=== PATIENT | male | born 1955 | race Caucasian/White ===

== ENCOUNTER → 2020-12-02 | Outpatient (CLI) | payer SELFPAY ==
--- NOTE | 2020-12-02 10:16 | Diagnostic Imaging Report ---
INDICATION: Hyperlipidemia. TECHNIQUE: CT cardiac calcium score was performed with noncontrast images of the cardiac silhouette and calculation of calcium score. FINDINGS: Raw data images demonstrate no evidence of aortic aneurysm. The visualized portions of the mediastinum show no mass lesion. There is no pleural or pericardial fluid. There is a small hiatal hernia incidentally noted. The visualized portions of the lung adair show no infiltrates or nodules. The CT cardiac calcium score was 43.9 for calcifications in the distal LAD. The remaining coronary territories show no significant calcification. IMPRESSION: The cardiac calcium score was 43.9 for some calcifications in the distal LAD, compatible with a relatively mild overall plaque burden. No significant coronary calcification was seen in the remaining territories. There is a small incidental hiatal hernia with no other incidental findings in the visualized portions of the chest. Dictated by: Dictated on workstation # [id number]
== END ==
LOC: RAD FS 09:00
PROVIDERS: ATTEND Family Medicine
DX: K44.9 Diaphragmatic hernia without obstruction or gangrene (principal); E78.5 Hyperlipidemia, unspecified
CPT/HCPCS: 75571

== ENCOUNTER → 2023-01-05 | Outpatient (CLI) | payer MEDICARE, OTHER ==
[~2023-01-05] VITALS: Ht 205.7 cm; Wt 125.0 kg
[~2023-01-05] MED LIST: ALPR0.5T7 PO; LOSA1TAB26 PO; ROSU10TA28 PO
[2023-01-05 11:18] VITALS: BP 138/92
[2023-01-05 13:17] LABS: BASOPHILS % (AUTO) 1 % (0-10); EOSINOPHILS # (AUTO) 0.1 10^3/uL (0.0-0.3); EOSINOPHILS % (AUTO) 1 % (0-10); HEMATOCRIT 47 % (40-54); HEMOGLOBIN 15.7 g/dL (13.3-17.7); LYMPHOCYTES # (AUTO) 1.3 10^3/uL (1.0-4.0); LYMPHOCYTES % (AUTO) 19 % (12-44); MEAN CORPUSCULAR HEMOGLOBIN 31 pg (25-34); MEAN CORPUSCULAR HGB CONC 33 g/dL (32-36); MEAN CORPUSCULAR VOLUME 93 fL (80-99); MEAN PLATELET VOLUME 11.6 fL (9.0-12.2); MONOCYTES # (AUTO) 0.5 10^3/uL (0.0-1.0); MONOCYTES % (AUTO) 7 % (0-12); NEUTROPHILS # (AUTO) 4.8 10^3/uL (1.8-7.8); NEUTROPHILS % (AUTO) 72 % (42-75); PLATELET COUNT 199 10^3/uL (130-400); WHITE BLOOD COUNT 6.7 10^3/uL (4.3-11.0)
[2023-01-05 13:28] LABS: INR 0.9 (0.8-1.4); PROTHROMBIN TIME PATIENT 12.7 SEC (12.2-14.7)
[2023-01-05 13:50] LABS: ALBUMIN 4.4 GM/DL (3.2-4.5); BILIRUBIN,TOTAL 1.2 MG/DL (0.1-1.0); CALCIUM 9.3 MG/DL (8.5-10.1); CREATININE SERUM 0.92 MG/DL (0.60-1.30); POTASSIUM 3.8 MMOL/L (3.6-5.0); TOTAL PROTEIN 7.3 GM/DL (6.4-8.2)
--- NOTE | 2023-01-05 15:52 | Physical Therapy Pre-Op Eval ---
PT Pre-Surgical Assessment Type of Surgery Type of Surgery: Prior Level of Function Current Living Status: Spouse Locomotion (Upon Admit): Independent PLOF DME: None Subjective Home: Multilevel Current Living Status: Spouse Entry Into Home: Stairs With Railing Steps Into Home: 2 Steps Inside Home: 12 Steps Accessories: Railing Present Motor Control Motor Control: Motor Control WNL ROM ROM: WFL, except focal deficit Strength Strength: Gen Weak,No Focal Deficit Transfers Transfers (B, C, W/C) (FIM): 6 Gait Gait (FIM): 6 Gait Distance (FIM): 6 Gait Assistive Device: None Right Lower Extremity: Right Full Weight Bearing Left Lower Extremity: Left Full Weight Bearing Treatment Rendered Treatment: Patient instructed in assistive device, supported ambulation. Patient instructed in and given written program of ROM and strengthening exercises to be preformed post-op. Patient instructed in movement precautions where applicable. Patient demonstrates understandings of post-operative therapy protocol including gait pattern and exercise program. Pre-operative instruction completed; await physical therapy orders after surgery. Treatment Goal Met: Yes Assessment Goals Acheived: I Ambulation w/ FWW, Understands P-op Precaut, I Post-op Exercises Charges/GCodes Time In: 1100 Time Out: 1112 Total Billed Treatment Time: 12 Total Billed Treatment Visit, MALAIKA YOUNG PT Jan 05, 2023 15:52
[2023-01-06 09:06] LABS: BACTERIA,URINE NEGATIVE /HPF; BILIRUBIN,URINE NEGATIVE (NEGATIVE); CALCIUM OXALATE CRYSTALS,UR MODERATE /LPF; CLARITY,URINE CLEAR; COLOR,URINE YELLOW; GLUCOSE, URINE (UA) NEGATIVE (NEGATIVE); KETONES,URINE TRACE (NEGATIVE); LEUKOCYTE ESTERASE ,URINE NEGATIVE (NEGATIVE); NITRITE,URINE NEGATIVE (NEGATIVE); PROTEIN,URINE NEGATIVE (NEGATIVE)
== END ==
LOC: PREOP 10:57
PROVIDERS: ATTEND Orthopaedic Surgery
DX: Z01.818 Encounter for other preprocedural examination (principal); M17.11 Unilateral primary osteoarthritis, right knee
CPT/HCPCS: 36415; 80053; 81000; 85025; 85610; 86850; 86900; 86901; 87081

== ENCOUNTER 2023-01-12 07:45 | Day surgery (SDC) | payer MEDICARE, OTHER ==
--- NOTE | 2023-01-04 08:25 | HISTORY AND PHYSICAL ---
DATE OF SERVICE: 01/12/2023 This will be for inpatient admission on 01/12/2023 for right total knee arthroplasty. The patient will require regular inpatient admission due to need for physical therapy and pain management. HISTORY OF PRESENT ILLNESS: The patient is a 67-year-old gentleman with progressively worsening right knee pain. He has undergone treatment with injections, which provided only temporary relief of symptoms. He reports activity limitations because of the knee. Radiographs reveal severe medial and patellofemoral arthrosis. Due to functional impairment and failure to improve with conservative measures, the patient has elected to proceed with surgical intervention. REVIEW OF SYSTEMS: No chest pain. No shortness of breath. No dysuria. PAST MEDICAL HISTORY: Hypertension and reflux. PAST SURGICAL HISTORY: Lumbar, cataract, cholecystectomy, vocal cord polyp, ankle internal fixation and left ankle fusion. FAMILY HISTORY: Noncontributory. PRIMARY CARE PROVIDER: Dr. Zavala. MEDICATIONS: Alprazolam, losartan, rosuvastatin. ALLERGIES: DEMEROL. SOCIAL HISTORY: The patient drinks alcohol socially. Denies tobacco use. PHYSICAL EXAMINATION: GENERAL: The patient is well-developed, well-nourished, in no acute distress. HEENT: Normocephalic, atraumatic. Pupils equal, round and reactive to light. Oropharynx is clear. NECK: Supple. No lymphadenopathy. LUNGS: Clear to auscultation bilaterally. HEART: Regular rate and rhythm. ABDOMEN: Soft, nontender, nondistended. EXTREMITIES: The right knee demonstrates moderate effusion. He is tender along his medial femoral condyle. He has pain medially with Owen's. There is no varus or valgus laxity. Negative anterior and posterior drawer. He ambulates with an antalgic gait. Active range of motion is 0/3/125. IMPRESSION: Severe right knee osteoarthritis. PLAN: Right total knee arthroplasty. The risks, benefits, options, ramifications and recovery have been discussed at length with the patient. He understands and wishes to proceed. Job ID: [id number] DocumentID: [id number] Dictated Date: 12/27/2022 11:36:11 Curator Of Photography And Prints Date: 12/27/2022 16:25:00 Dictated By: DAT LAZARO MD
--- NOTE | 2023-01-05 14:30 | Diagnostic Imaging Report ---
EXAMINATION: Chest 2 view HISTORY: Preoperative evaluation COMPARISON: None available. FINDINGS: Heart size and pulmonary vasculature are normal. The lungs are clear without consolidation, pleural effusion, or pneumothorax. The osseous structures are intact. IMPRESSION: 1. No acute radiographic abnormality in the chest. Dictated by: Dictated on workstation # [id number]
[~2023-01-12] VITALS: Ht 205.7 cm; Wt 125.0 kg
[2023-01-12] VITALS (11 sets, daily range): BP systolic 91–149; BP diastolic 54–96
[~2023-01-12 07:45] MED LIST changes: +NS IV 1000 ML 1,000 ML IV SCH; +ONDANSETRON INJECTION 4 MG/2 ML (SDV) IV PRN; +TEMAZEPAM 15 MG (RESTORIL) CAP PO PRN; +diphenhydrAMINE INJ 50 MG/ML VIAL IVP PRN; +oxyCODONE/ACETAMINOPHEN 5/325MG TABLET PO PRN
--- NOTE | 2023-01-12 07:48 | Progress Note-Pre Operative ---
Pre-Operative Progress Note Date of Available H&P: Jan 04, 2023 Date H&P Reviewed: Jan 12, 2023 Time H&P Reviewed: 07:47 Changes from last HP none Pre-Operative Diagnosis: right knee primary osteoarthritis DAT LAZARO MD Jan 12, 2023 07:48
--- NOTE | 2023-01-12 07:49 | Progress Note-Post Operative ---
Post-Operative Progess Note Surgeon (s)/Job Developer (s) Surgeon DAT LAZARO MD Job Developer: Larry Driver Pre-Operative Diagnosis right knee primary osteoarthritis Post-Operative Diagnosis right knee primary osteoarthritis Procedure & Operative Findings Date of Procedure 01/12/23 Procedure Performed/Findings right total knee arthroplasty Anesthesia Type spinal Estimated Blood Loss Estimated blood loss (mL): minimal Specimens/Packing Specimens Removed none Packing: none DAT LAZARO MD Jan 12, 2023 07:48
--- OUTSIDE RECORDS SUMMARY | 2023-01-12 07:49 | XMS REPORT ---
Author Author [facility] ter of [facility] ter of [facility] Address Unknown Phone Unavailable Care Team Providers Care Dispute Resolution Specialist Name Role Phone SELFGEORGES Unavailable PROBLEMS Type Condition ICD9-CM Code [id number] Code Onset Dates Condition Status W/U Status Risk SNOMED Code Notes Problem Hyperlipemia E78.5 confirmed 5143005 4 Problem Diverticulosi s K57.90 confirmed 141166335 Problem Essential hypertension I10 confirmed 72820656 Problem Anxiety F41.9 confirmed 91545148 Problem Personal history of colonic polyps Z86.010 confirmed [id number] ALLERGIES No Known Allergies ENCOUNTERS from 1955 to 2022-10-31 Encounter Location Date Provider Diagnosis [address] [id number] [address] Oct, GEORGES SELF Encounter to [facility] Z76.89 ; Anxiety F41.9 ; Essential hypertension I10 ; Lipid screening Z13.220 ; Colon cancer screening Z12.11 ; Encounter for screening for malignant neoplasm of rectum Z12.12 ; Screening PSA (prostate specific antigen) Z12.5 and Polyp of colon, unspecified part of colon, unspecified type K63.5 IMMUNIZATIONS Vaccine Route Administration Date Status 2nd Booster MODERNA COVID-19 , mRNA, 0.25mL IM Intramuscular October 12, 2021 Administered Booster HRSA MODERNA, COVID- 19, 0.25mL IM Intramuscular Feb 09, 2021 Administered PRIVATE FLULAVAL QUAD 0.5ML (6 MO AND UP) 2020 IM Intramuscular Feb 09, 2021 Administered 2nd Dose HRSA MODERNA, COVID -19, 0.5mL IM Intramuscular July 17, 2020 Administered 1st Dose HRSA MODERNA, COVID -19, 0.5mL IM Intramuscular June 19, 2020 Administered shingrix (history) Unknown Nov 12, 2021 Administe red PRIVATE FLU 22-23 (FLULAVAL) AGE 6MO AND UP IM Intramuscular Dec 25, 2021 Administered shingrix (history) Unknown July 09, 2021 Adminis tered covid mrna bivalent (history) Unknown Feb 05 2 Administered influenza IIV4 (history) Unknown Jan 16, 2020 Adm inistered td adult 2 Lf tetanus toxoid , preservative free, adsorbed (history) Unknown August 07, 2002 Administered SOCIAL HISTORY Sex Assigned At : Social History Observation Description Sex Assigned At Unknown PHQ2 Question Answer Notes In the last 2 weeks, how oft en have you had little interest or pleasure in doing things? Not at all In the last 2 weeks, how oft en have you been feeling down, depressed, or hopeless? Not at all Total PHQ2 Score 0 REASON FOR REFERRAL from 1955 to 2022-10-31 Reason LMTR | SCREEN COLO Diagnosis 1 Colon cancer screeni ng (Z12.11) Diagnosis 2 Encounter for screen ing for malignant neoplasm of rectum (Z12.12) Diagnosis 3 Polyp of colon, unsp ecified part of colon, unspecified type (K63.5) Referral Organization [facility] Referring Provider First Name GEORGES Referring Provider Last Name SELF Referring Provider Specialty Family [facility] cine Referred Organization [facility] Referred Provider SOLEDAD STAPLES Referred Address [address] [place] [phone] Referred Provider Specialty Family Medic ine Referral Priority Routine General Notes GEORGES ZAVALA 10/27 02:14:12 PM >please refer Kierra Holbrook 11/18/2020 12:26:16 PM >TR Clinical Notes Kierra Holbrook 02:47:01 PM >scheduled 01/01/21 VITAL SIGNS Height 6'10" in Oct, Height-cm 208.28 cm Oct, Weight 263 lbs Oct, Weight-kg 119.29 kg Oct, Temperature 98.2 degrees Fahrenheit Oct, Heart Rate 67 bpm Oct, Respiratory Rate 20 bpm Oct, Oximetry 99 % Oct, BMI 27.5 kg/m2 Oct, Blood pressure systolic 132 mmHg Oct, Blood pressure diastolic 80 mmHg Oct, MEDICATIONS Medication SIG (Take, Route, Frequency, Duration) Notes Start Date End Date Status ALPRAZolam 0.5 MG 1 tablet Orally at bedtime for 28 days Sep, Active Losartan Potassium-HCTZ 100-12.5 MG Take 1 tablet by mouth once daily for 90 Active Rosuvastatin Calcium 10 MG 1 tablet Oral ly Once a day for 90 days Mar, Active REASON FOR VISIT new pt (Marin Wiseman MA) MEDICAL (GENERAL) HISTORY Type Description Date Medical History Hypertension Surgical History right elbow surgery x 2 Surgical History ankle surgery age 18 Surgical History right index finger 20 Surgical History back surgery 1997 Surgical History vocal polyp 09/2014 Surgical History left eye catract 10/2015 Surgical History cholecystectomy 08/2016 Surgical History rotator cuff tear repair on rig ht shoulder 12/2016 Hospitalization History surgeries MENTAL STATUS No Information ASSESSMENTS Encounter Date Diagnosis Assessment Notes Treatment Notes Treatment Clinical Notes Oct, Encounter to establish care (ICD-10 - Z76.89) establish care with Dr. Zavala moved from [place], [place] Oct, Anxiety (ICD-10 - F41.9) stable takes Xanax for sleep no changes continue same medications Oct, Essential hypertension (ICD-10 - I10) stable no changes continue same medications Oct, Lipid screening (ICD-10 - Z13.220) Oct, Colon cancer screening (ICD-10 - Z12.11) had 8 Polyps in past Oct, Encounter for screening for malignant neoplasm of rectum (ICD-10 - Z12.12) Oct, Screening PSA (prostate specific antigen) (ICD-10 - Z12.5) Oct, Polyp of colon, unspecified part of colon, unspecified type (ICD-10 - K63.5) history of 8 polyps in past rec colonoscopy Oct, Other This phyllis s note was scribed by Cinthia Hoyt MA under the direct supervision of Dr Georges Zavala who directed the entire visit and performed the physical exam. PLAN OF TREATMENT Medication Medication Name Sig Start Date Stop Date ALPRAZolam 0.5 MG 1 tablet Orally at b edtime for 28 days Sep, Rosuvastatin Calcium 10 MG 1 tablet Oral ly Once a day for 90 days Mar, Losartan Potassium-HCTZ 100- 12.5 MG Take 1 tablet by mouth once daily for 90 Treatment Notes Assessment Notes Clinical Notes Encounter to establish care establish ca re with Dr. Zavala moved from [place], [place] Anxiety stable takes Xanax for sleep no changes continue same medications Essential hypertension stable no changes continue same medications Colon cancer screening had 8 Polyps in p ast Polyp of colon, unspecified part of colon, unspecified type history of 8 polyps in past rec colonoscopy Referrals Referral Date Details LMTRC | SCREEN COLO, SOLEDAD STAPLES, [address] [place] [address], [phone], Next Appt Details 1 Year Reason:wellness Provider Name:GEORGES ZAVALA , 2022-11-17 10:15:00 AM, [address] [place] [address], [phone], Provider Name:GEORGES ZAVALA , 2022-12-20 11:00:00 AM, [address] [place] [address], [phone], Follow Up[facility] Insurance Providers Payer Name Payer Address Payer Phone Insured Name Patient Relationship to Insured Coverage Start Date Coverage End Date Subscriber Number Group Number [facility] [id number] [facility] [id number] Damien Hill Self - patient is the insured [id number] [facility] PART A [facility] [address] [facility] [phone] Damien Hill Dixei Self - patient is the insured [id number]
--- OUTSIDE RECORDS SUMMARY | 2023-01-12 07:49 | XMS REPORT ---
Author Author [facility] ter of [facility] ter of [facility] Address Unknown Phone Unavailable Care Team Providers Care Dielectric Press Operator Name Role Phone SOLEDAD STAPLES Unavailable PROBLEMS Type Condition ICD9-CM Code [id number] Code Onset Dates Condition Status W/U Status Risk SNOMED Code Notes Problem Hyperlipemia E78.5 confirmed 4299007 4 Problem Diverticulosi s K57.90 confirmed 525547527 Problem Essential hypertension I10 confirmed 61713143 Problem Anxiety F41.9 confirmed 31746722 Problem Personal history of colonic polyps Z86.010 confirmed [id number] ALLERGIES No Known Allergies ENCOUNTERS from 1955 to 2022-12-17 Encounter Location Date Provider Diagnosis [place] [address] [place] [phone] Dec, SOLEDAD STAPLES IMMUNIZATIONS Vaccine Route Administration Date Status 2nd [...] Total PHQ2 Score 0 REASON FOR REFERRAL No Information MEDICATIONS Medication SIG (Take, Route, Frequency, Duration) Notes Start Date End Date Status Losartan Potassium-HCTZ 100-12.5 MG Take 1 tablet by mouth once daily for 90 Active Rosuvastatin Calcium 10 MG 1 tablet Oral ly Once a day for 90 days Mar, Active ALPRAZolam 0.5 MG 1 tablet Orally at bedtime for 28 days Sep, Active REASON FOR VISIT jose/colonoscopy MEDICAL (GENERAL) HISTORY Type Description Date Medical History Hypertension Surgical History right elbow surgery x 2 Surgical History ankle surgery age 18 Surgical History right index finger 20 Surgical History back surgery 1998 Surgical History vocal polyp 09/2014 Surgical History left eye catract 10/2015 Surgical History cholecystectomy 08/2016 Surgical History rotator cuff tear repair on rig ht shoulder 12/2016 Hospitalization History surgeries MENTAL STATUS No Information PLAN OF TREATMENT No Information Insurance Providers Payer Name Payer Address Payer Phone Insured Name Patient Relationship to Insured Coverage Start Date Coverage End Date Subscriber Number Group Number [facility] PART A [facility] [address] [facility] [id number] Damien Hill Self - patient is the insured [id number] [address] [address] Damien Hill S Self - patient is the insured [id number]
--- OUTSIDE RECORDS SUMMARY | 2023-01-12 07:49 | XMS REPORT ---
Author Author [facility] ter of [facility] ter of [facility] Address Unknown Phone Unavailable Care Team Providers Care Seat Nailer Name Role Phone SELFANGELO Unavailable PROBLEMS Type Condition ICD9-CM Code [id number] Code Onset Dates Condition Status W/U Status Risk SNOMED Code Notes Problem Hyperlipemia E78.5 confirmed 3105826 4 Problem Diverticulosi s K57.90 confirmed 041824874 Problem Essential hypertension I10 confirmed 69403255 Problem Anxiety F41.9 confirmed 80085878 Problem Personal history of colonic polyps Z86.010 confirmed [id number] ALLERGIES No Known Allergies ENCOUNTERS from 1955 to 2022-10-30 Encounter Location Date Provider Diagnosis [address] [id number] [address] Oct, ANGELO SELF Essential hypertensi on I10 ; Screening PSA (prostate specific antigen) Z12.5 and Lipid screening Z13.220 IMMUNIZATIONS Vaccine Route Administration Date Status PRIVATE FLULAVAL QUAD 0.5ML (6 MO AND UP) 2020 IM Intramuscular Feb 09, 2021 Administered Booster HRSA MODERNA, COVID- 19, 0.25mL IM Intramuscular Feb 09, 2021 Administered PRIVATE FLU 22-23 (FLULAVAL) AGE 6MO AND UP IM Intramuscular Dec 25, 2021 Administered shingrix (history) Unknown Nov 12, 2021 Administe red covid mrna bivalent (history) Unknown Feb 05 Administered 2nd Booster MODERNA COVID-19 , mRNA, 0.25mL IM Intramuscular October 12, 2021 Administered 2nd Dose HRSA MODERNA, COVID -19, 0.5mL IM Intramuscular July 17, 2020 Administered shingrix (history) Unknown July 09, 2021 Adminis tered 1st Dose HRSA ELMA, COVID -19, 0.5mL IM Intramuscular June 19, 2020 Administered influenza IIV4 (history) Unknown Jan 16, [...] a day for 90 days Mar, Active PROCEDURES from 1955 to 2022-10-30 Procedure Date Ordered Date Performed Result Body Sit e ROUTINE VENIPUNCTURE 2020-11-18 2020-11-18 N/A REASON FOR VISIT Lab MEDICAL (GENERAL) HISTORY Type Description Date Medical [...] Notes Treatment Notes Treatment Clinical Notes Oct, Screening PSA (prostate specific antigen) (ICD-10 - Z12.5) Oct, Essential hypertension (ICD-10 - I10) Oct, Lipid screening (ICD-10 - Z13.220) PLAN OF TREATMENT Medication Medication Name Sig Start Date Stop Date ALPRAZolam 0.5 MG 1 tablet Orally at b edtime for 28 days Sep, Rosuvastatin Calcium 10 MG 1 tablet Oral ly Once a day for 90 days Mar, Losartan Potassium-HCTZ 100- 12.5 MG Take 1 tablet by mouth once daily for 90 Next Appt Details Provider Name:ANGELO CESAR , 2022-11-17 10:15:00 AM, [address] [place], [address], Provider Name:ANGELO CESAR , 2022-12-20 11:00:00 AM, [address] [place], [address], Insurance Providers Payer Name Payer Address Payer Phone Insured Name Patient Relationship to Insured Coverage Start Date Coverage End Date Subscriber Number Group Number [facility] [address] [facility] [id number] Damien Hill Self - patient is the insured [id number] [facility] PART A [facility] [address] [facility] [id number] Damien Hill Self - patient is the insured [id number]
--- OUTSIDE RECORDS SUMMARY | 2023-01-12 07:49 | XMS REPORT ---
Author Author [facility] ter of [facility] ter of [facility] Address Unknown Phone Unavailable Care Team Providers Care Parking Inspector Name Role Phone ANGELO CESAR Unavailable PROBLEMS Type Condition ICD9-CM Code [id number] Code Onset Dates Condition Status W/U Status Risk SNOMED Code Notes Problem Hyperlipemia E78.5 confirmed 5401614 4 Problem Diverticulosi s K57.90 confirmed 421592136 Problem Essential hypertension I10 confirmed 82604095 Problem Anxiety F41.9 confirmed 51443197 Problem Personal history of colonic polyps Z86.010 confirmed [id number] ALLERGIES No Known Allergies ENCOUNTERS from 1955 to 2022-11-17 Encounter Location Date Provider Diagnosis [address] [id number] [address] Nov, ANGELO SELF IMMUNIZATIONS Vaccine Route Administration Date Status PRIVATE FLU -23 (FLULAVAL) AGE 6MO AND UP IM Intramuscular Dec 25, 2021 Administered 2nd Booster MODERNA COVID-19 , mRNA, 0.25mL IM Intramuscular October 12, 2021 Administered Booster HRSA MODERNA, COVID- 19, 0.25mL IM Intramuscular Feb 09, 2021 Administered PRIVATE FLULAVAL QUAD 0.5ML (6 MO AND UP) 2020 IM Intramuscular Feb 09, 2021 Administered 2nd Dose HRSA MODERNA, COVID -19, 0.5mL IM Intramuscular July 17, 2020 Administered shingrix (history) Unknown Nov 12, 2021 Administe red covid mrna bivalent (history) Unknown Feb 05 Administered shingrix (history) Unknown July 09, 2021 Adminis tered 1st Dose HRSA LISAA, COVID -19, 0.5mL IM Intramuscular June 19, [...] 90 days Mar, Active REASON FOR VISIT Requests Return Call MEDICAL (GENERAL) HISTORY Type Description Date Medical [...] MENTAL STATUS No Information PLAN OF TREATMENT Medication Medication Name Sig Start Date Stop Date ALPRAZolam 0.5 MG 1 tablet Orally at b edtime for 28 days Sep, Rosuvastatin Calcium 10 MG 1 tablet Oral ly Once a day for 90 days Mar, Losartan Potassium-HCTZ 100- 12.5 MG Take 1 tablet by mouth once daily for 90 Next Appt Details Provider Name:ANGELO CESAR , 2022-11-17 10:15:00 AM, [address] [place] [address], [phone], Provider Name:ANGELO CESAR , 2022-12-20 11:00:00 AM, [address] [place], [address], Insurance Providers Payer Name Payer Address Payer Phone Insured Name Patient Relationship to Insured Coverage Start Date Coverage End Date Subscriber Number Group Number [facility] PART A [facility] [address] [facility] [id number] Damien Hill Self - patient is the insured [id number] [address] [address] Damien Hill Dixie Self - patient is the insured [id number]
--- OUTSIDE RECORDS SUMMARY | 2023-01-12 07:49 | XMS REPORT ---
Author Author [facility] ter of [facility] ter of [facility] Address Unknown Phone Unavailable Care Team Providers Care Linux Admin Engineer Name Role Phone SELFANGELO Unavailable PROBLEMS Type Condition ICD9-CM Code UDF13-SE Code Onset Dates Condition Status W/U Status Risk SNOMED Code Notes Problem Hyperlipemia E78.5 confirmed [id number] Problem Diverticulosi s K57.90 confirmed [id number] Problem Essential hypertension I10 confirmed 32414403 Problem Anxiety F41.9 confirmed [id number] Problem Personal history of colonic polyps Z86.010 confirmed [id number] ALLERGIES No Known Allergies ENCOUNTERS from 1955 to 2022-11-02 Encounter Location Date Provider Diagnosis [address] [id number] [address] Oct, ANGELO SELF Hyperlipemia E78.5 IMMUNIZATIONS Vaccine Route Administration Date Status 1st Dose HRSA MODERNA, COVID -19, 0.5mL IM Intramuscular June 19, 2020 Administered PRIVATE FLULAVAL QUAD 0.5ML (6 MO AND UP) 2020 IM Intramuscular Feb 09, 2021 Administered Booster HRSA MODERNA, COVID- 19, 0.25mL IM Intramuscular Feb 09, 2021 Administered td adult 2 Lf tetanus toxoid , preservative free, adsorbed (history) Unknown August 07, 2002 Administered influenza IIV4 (history) Unknown Jan 16, 2020 Adm inistered shingrix (history) Unknown July 09, 2021 Adminis tered 2nd Dose HRSA MODERNA, COVID -19, 0.5mL IM Intramuscular July 17, 2020 Administered PRIVATE FLU 22-23 (FLULAVAL) AGE 6MO AND UP IM Intramuscular Dec 25, 2021 Administered shingrix (history) Unknown Nov 12, 2021 Administe red covid mrna bivalent (history) Unknown Feb 05 Administered 2nd Booster MODERNA COVID-19 , mRNA, 0.25mL IM Intramuscular October 12, 2021 Administered SOCIAL HISTORY Sex Assigned At : [...] 90 days Mar, Active REASON FOR VISIT lipid panel results MEDICAL (GENERAL) HISTORY Type Description Date Medical [...] Notes Treatment Notes Treatment Clinical Notes Oct, Hyperlipemia (ICD-10 - E78.5) PLAN OF TREATMENT Medication Medication Name Sig Start Date Stop Date ALPRAZolam 0.5 MG 1 tablet Orally at b edtime for 28 days Sep, Rosuvastatin Calcium 10 MG 1 tablet Oral ly Once a day for 90 days Mar, Losartan Potassium-HCTZ 100- 12.5 MG Take 1 tablet by mouth once daily for 90 Future Test Test Name Order Date CT Scan : Coronary Artery Calcium Allison sutton [id number] Next Appt Details Provider Name:ANGELO CESAR , 2022-11-17 10:15:00 AM, [address] [place], [address], Provider Name:ANGELO CESAR , 2022-12-20 11:00:00 AM, [address] [facility], [place], [address], Insurance Providers Payer Name Payer Address Payer Phone Insured Name Patient Relationship to Insured Coverage Start Date Coverage End Date Subscriber Number Group Number [employer] [facility] [address] [facility] [id number] [place] Self - patient is the insured [id number] [address] [address] [phone] Damien [place] Self - patient is the insured [id number]
--- NOTE | 2023-01-12 07:50 | D/C HH Face to Face Order ---
D/C Face to Face Orders Reconcile Patient Problems Problems Reviewed?: Yes Instructions for Patient Via Carolyn FriendsClear, Patient Instructions/FollowUp: three weeks Physician to follow Patient: three weeks Discharge Diet for Home: Regular Diet Patient Data-Allergies,Ht & Wt Patient Allergies: Coded Allergies: meperidine (Verified Allergy, Unknown, Vomiting, 01/05/23) Home Health Need/Face to Face Date of Face to Face: Jan 12, 2023 Clinical Findings: Muscle weakness, Pain with ambulation I have seen Pt [id number]-[id number]: Yes Discharged To: Home Diagnosis/Conditions: right total knee arthroplasty Patient is Homebound due to: Muscle weakness, Pain w/ambulation Homebound Status Due to the above stated illness, injury or surgical procedure (medical condition or diagnosis) and associated clinical findings, the patient is homebound because of his/her inability to leave home except with aid of a supportive device and/or person AND leaving the home requires a considerable and taxing effort or is medically contraindicated. Pt req the following assistanc: [facility] Health Nursing Orders Home Health Services Order: Physical Therapy-Evaluate & Treat DC right knee rico and apply steri strips 01/26/23 Therapy Orders Therapy Orders: Physical Therapy, PT to assess for OT Therapy Specific Orders: Eval assistive deivces, Teach enviro modifications/safety, Gait training, Increase strength/endurance, Provider maintenance therapy, Restore ROM Certify Stmt I certify that this patient is under my care and that I, a nurse practitioner or a physician; a golf player assistant working with me, had a face to face encounter that - meets the physician face to face encounter requirements with this patient as dated. DAT LAZARO MD Jan 12, 2023 07:50
[2023-01-12] MEDS ORDERED: CEFUROXIME INJECTION 1,500 MG in NS (IVPB) 50 ML 50 ML IV ONE (08:00)
[2023-01-12] MEDS ORDERED: INTRA-ARTICULAR IU ONE ×9 (08:00)
[2023-01-12] MEDS ORDERED: CEFUROXIME 1.5 GM VIAL ONE (08:22)
[2023-01-12] MEDS ORDERED: NS (IVPB) 100 ML 100 ML ONE (08:23)
[2023-01-12] MEDS ORDERED: MIDAZOLAM INJ 2 MG/2 ML VIAL ONE ×2 (08:59→10:34)
[2023-01-12] MEDS ORDERED: fentaNYL INJECTION 100 MCG/2 ML VIAL ONE (09:00)
[2023-01-12] MEDS ORDERED: CELECOXIB 400 MG CAPSULE PO SCH (09:00)
[2023-01-12] MEDS ORDERED: SENNA W/DOCUSATE TABLET PO SCH (09:00)
[2023-01-12] MEDS ORDERED: ASPIRIN enteric coated 81MG TABLET PO SCH (09:00)
[2023-01-12] MEDS: LACTATED RINGERS 1,000 ML 1,000 ML IV PRN ×3 (09:07→11:00)
[2023-01-12] MEDS ORDERED: ACET-168 PO (09:30)
[2023-01-12] MEDS ORDERED: GABA300C PO ×2 (09:30→14:46)
[2023-01-12] MEDS ORDERED: CELE400C PO (09:30)
[2023-01-12] MEDS ORDERED: BUPIVACAINE 0.5% 30 ML VIAL ONE (09:35)
[2023-01-12] MEDS ORDERED: TRANEXAMIC ACID 100 MG/ML 10 ML INJECTION ONE (09:46)
[2023-01-12] MEDS ORDERED: ESOM20CA37 PO (10:22)
[2023-01-12] MEDS ORDERED: proPOfol INJECTION 200 MG/20 ML VIAL IV ONE (11:08)
--- NOTE | 2023-01-12 11:46 | Progress Note ---
Standard Progress Note Progress Notes/Assess & Plan Date Seen by a Provider: Jan 12, 2023 Time Seen by a Provider: 11:45 Progress/Assessment & Plan post op check spinal in effect radiographs--HW well positioned without fracture RLE--1 plus DP pulse with brisk cap refill s/p RTKA mobilize when able DAT LAZARO MD Jan 12, 2023 11:46
--- NOTE | 2023-01-12 12:35 | Diagnostic Imaging Report ---
INDICATION: Postoperative. TECHNIQUE: 2 portable post operative radiographs of the knee CORRELATION STUDY: None FINDINGS: There are postsurgical changes of a total knee arthroplasty. Alignment is anatomic. Installed hardware appearing unremarkable. Lucency superior medial femoral condyle, question nondisplaced fracture. Overlying soft tissue and intra-articular gas collections and skin rico are present. IMPRESSION: Postoperative knee replacement. Dictated by: Dictated on workstation # [id number]
[2023-01-12] MEDS ORDERED: NS IV 1000 ML 1,000 ML IV SCH (13:00)
[2023-01-12] MEDS ORDERED: OXYC1TAB11 PO (14:46)
[2023-01-12] MEDS ORDERED: TRAM50TA3 PO (14:46)
[2023-01-12] MEDS ORDERED: CELE400C16 PO (14:46)
[2023-01-12] MEDS ORDERED: FLU HIGH DOSE (65+ YOA) 240 MCG/0.7 ML 2023-24 (FLUZONE) IM ONE (15:00)
[2023-01-12] MEDS ORDERED: PATIENT MAY USE OWN MEDS, ALL MC SCH (15:15)
[2023-01-12] MEDS ORDERED: oxyCODONE/ACETAMINOPHEN 5/325MG TABLET PO PRN (15:15)
[2023-01-12] MEDS ORDERED: NON-FORMULARY MEDICATION 1 EA EA (Esomeprazole Magnesium 20 MG) PO PRN (15:15)
--- NOTE | 2023-01-12 15:17 | Physical Therapy Evaluation ---
PT Evaluation-General Medical Diagnosis Admission Date Jan 12, 2023 at 07:45 Medical Diagnosis: RTKA Onset Date: Jan 12, 2023 Therapy Diagnosis Therapy Diagnosis: Gait deficit, strength deficit Precautions Precautions/Isolations: Fall Prevention, Standard Precautions Weight Bear Status Right Lower Extremity: Right Weight Bearing/Tolerated Left Lower Extremity: Left Full Weight Bearing Referral Physician: Dr. Gavin Reason for Referral: Evaluation/Treatment Medical History Reviewed History: Yes Social History Home: [facility] Current Living Status: Spouse Entry Into Home: Stairs Without Railing PT Steps Into Home: 3 PT Steps Inside Home: 15 Prior Prior Level of Function SCALE: Activities may be completed with or without assistive devices. 4-Qkwnfbrlzr-cbffjem completes the activity by him/herself with no assistance from a helper. 5-Set-up or Clean-up Assistance-helper sets up or cleans up; patient completes activity. [place] assists only prior to or following the activity. 4-Supervision or Touching Assistance-helper provides verbal cues and/or to uching/steadying and/or contact guard assistance as patient completes activity. Assistance may be provided throughout the activity or intermittently. 3-Partial/Moderate Assistance-helper does LESS THAN HALF the effort. [place] lifts, holds or supports trunk or limbs, but provides less than half the effort. 2-Substantial/Maximal Assistance-helper does MORE THAN HALF the effort. [place] lifts or holds trunk or limbs and provides more than half the effort. 3-Kvhwobaau-zkvvsl does ALL the effort. Patient does none of the effort to complete the activity. Or, the assistance of 2 or more helpers is required for the patient to complete the activity. If activity was not attempted, code reason: 7-Patient Refused. 9-Not Applicable-not attempted and the patient did not perform the activity before the current illness, exacerbation or injury. 10-Not Attempted due to Environmental Limitations-(lack of equipment, weather restraints, etc.). 88-Not Attempted due to Medical Conditions or Safety Concerns. Bed Mobility: 6 Transfers (B,C,W/C): 6 Gait: 6 Stairs: 6 Indoor Mobility (Ambulation): Independent Stairs: Independent Prior Devices Use: None PT Evaluation-Current Subjective Patient lying supine in bed upon PT arrival, agreeable to treatment. Patient rates pain at 0/10 currently. Objective Patient Orientation: Person, Place, Time, Situation Attachments: Polar Pack, IV ROM/Strength ROM Lower Extremities Right knee flexion 85 degrees, extension lacks 10 degrees. All other RLE and all left LE ROMs WFLs Strength Lower Extremities Right LE 3+/5 all planes. Left LE 5/5 all planes Sensory Vision: Wears Glasses Hearing: Functional Sensation Right Lower Extremit: Intact Sensation Left Lower Extremity: Intact Transfers Roll Left to Right (QC): 3 Sit to Lying (QC): 3 Lying to Sitting/Side of Bed(Q: 3 Sit to Stand (QC): 3 Chair/Tds-pt-Npzpp Xfer(QC): 3 Gait Does the Patient Walk?: Yes Mode of Locomotion: Walk Anticipated Mode of Locomotion: Walk Distance: 5' Gait Assistive Device: FWW Balance Sitting Static: Good Sitting Dynamic: Good Standing Static: Fair Standing Dynamic: Fair Assessment/Needs Patient tolerated treatment well. He performs all bed mobility and transfers with min A. Patient 6'10" and requires he bed elevated minimally. Has his own FWW which he has added raised legs onto. Patient ambulates 5 feet with FWW, with Min A and verbal cues for safety, progression, posture and control of FWW. Patient in chair post treatment with all needs met, nursing notified, call light in reach, in the room. Rehab Potential: Good PT [facility]ci Goals Inside Sales Engineer Goals PT Inside Sales Engineer Goals Time Frame: Jan 25, 2023 Roll Left & Right (QC): 6 Sit to Lying (QC): 6 Lying-Sitting on Side/Bed(QC): 6 Sit to Stand (QC): 6 Chair/Aoh-nt-Ejvxl Xfer(QC): 6 Toilet Transfer (QC): 6 Does the Patient Walk: Yes Walk 10 feet (QC): 6 Walk 50ft with 2 Turns (QC): 6 Walk 150 ft (QC): 4 1 Step (curb) (QC): 4 4 Steps (QC): 4 12 Steps (QC): 4 PT Plan Problem List Problem List: Activity Tolerance, Functional Strength, Safety, Balance, Gait, Transfer, Bed Mobility, ROM Treatment/Plan Treatment Plan: Continue Plan of Care Treatment Plan: Bed Mobility, Education, Functional Activity [place], Functional Strength, Group Therapy, Gait, Safety, Therapeutic Exercise, Transfers Treatment Duration: Jan 25, 2023 Frequency: 11 times per week Estimated Hrs Per Day: .25 hour per day Patient and/or Family Agrees t: Yes Safety Risks/Education Patient Education: Gait Training, Transfer Techniques Teaching Recipient: Patient, Family Teaching Methods: Demonstration Response to Teaching: Verbalize Understanding, Return Demonstration Time Time In: 1325 Time Out: 1351 DATE: Jan 12, 2023 Total Billed Treatment Time: 26 Total Billed Treatment Visit, EMMANUEL TRINIDAD JOHN A PT Jan 12, 2023 15:17
[2023-01-12] MEDS ORDERED: PANTOPRAZOLE 40 MG TABLET PO PRN (15:30)
[2023-01-12] MEDS: CEFUROXIME INJECTION 750 MG in NS (IVPB) 50 ML 50 ML IV SCH (16:11)
[2023-01-12] MEDS: ACETAMINOPHEN 500 MG TABLET PO SCH (16:11)
--- NOTE | 2023-01-12 17:09 | Consultation ---
HPI History of Present Illness: HPI/Chief Complaint Chief complaint: Medical management following right knee replacement HPI: This is a 67-year-old male clinic patient of Dr. Zavala presents after an uncomplicated right knee replacement by Dr. Gavin. Currently his is at the bedside. He initially had some reflux issues so I did restart his proton pump inhibitor but it resolved before he was given. We will check labs in the morning to monitor closely. Source: patient, family, RN/MD Exam Limitations: no limitations Date Seen 01/12/23 Attending Physician Georges Zavala MD PCP Admitting Physician: Iglesia Gavin MD Attending Physician: Iglesia Gavin MD Referring Physician Date of Admission Jan 12, 2023 at 07:45 Home Medications & Allergies Home Medications Reviewed patient Home Medication Reconciliation performed by pharmacy medication reconciliations compounding pharmacy technician and/or nursing. Patients Allergies have been reviewed. Allergies Allergies Coded Allergies meperidine (Verified Allergy, Unknown, Vomiting, 01/05/23) Past Cupbpfp-Tpcjgl-Dvoqpn Hx Past Med/Social Hx: Reviewed Nursing Past Med/Soc Hx, Reviewed and Corrections made Patient Social History Marrital Status: Employed/Student: retired Alcohol Use: Denies Use Smoking Status: Never a Smoker Seasonal Allergies Seasonal Allergies: Yes Past Medical History Surgeries: Gallbladder, Orthopedic Currently Using CPAP: No Currently Using BIPAP: No Cardiac: Hypertension Gastrointestinal: Gastroesophageal Reflux Musculoskeletal: Arthritis HEENT: Cataract Hearing Impairment: Hard of Hearing, Bilateral Hearing Aide Psychosocial: Anxiety History of Blood Disorders: No Review of Systems Constitutional: see HPI Musculoskeletal: back pain, joint pain Physical Exam Physical Exam Vital Signs Vital Signs - First Documented 01/12/23 07:40 Temp 36.2 Pulse 63 Resp 18 B/P (MAP) 149/96 (113) Pulse Ox 97 O2 Delivery Room Air Capillary Refill : Height, Weight, BMI Height: '" Weight: lbs. oz. kg; 29.54 BMI Method: General Appearance: No Apparent Distress, WD/WN Eyes: Bilateral Eye Normal Inspection, Bilateral Eye PERRL HEENT: PERRL/EOMI, Normal ENT Inspection, Pharynx Normal Neck: Full Range of Motion, Normal Inspection, Non Tender, Supple, Carotid Bruit Respiratory: Chest Non Tender, Lungs Clear, Normal Breath Sounds, No Accessory Muscle Use, No Respiratory Distress Cardiovascular: Regular Rate, Rhythm, No Edema, No Gallop, No JVD, No Murmur, Normal Peripheral Pulses Gastrointestinal: Normal Bowel Sounds, No Organomegaly, No Pulsatile Mass, Non Tender, Soft Back: Normal Inspection, No CVA Tenderness, No Vertebral Tenderness Extremity: Normal Capillary Refill, Normal Inspection, Normal Range of Motion (Except right leg), Non Tender, No Calf Tenderness, No Pedal Edema Neurologic/Psychiatric: Alert, Oriented x3, No Motor/Sensory Deficits, Normal Mood/Affect Skin: Normal Color, Warm/Dry Lymphatic: No Adenopathy Results Results/Procedures Labs Patient resulted labs reviewed. Assessment/Plan Assessment and Plan Assess & Plan/Chief Complaint Assessment: Status post right knee replacement uncomplicated Hypertension Anxiety GERD Osteoarthritis Plan: Home meds Monitor blood pressure Supportive care ROBE MORENO DO Jan 12, 2023 17:09
--- NOTE | 2023-01-12 18:56 | OPERATIVE REPORT ---
DATE OF SERVICE: 01/12/2023 PREOPERATIVE DIAGNOSIS: Right knee primary osteoarthritis. POSTOPERATIVE DIAGNOSIS: Right knee primary osteoarthritis. PROCEDURE: Right total knee arthroplasty. SURGEON: Iglesia Lazaro MD OSTOMY CARE NURSE: Larry Driver, who assisted throughout the procedure and closed the incision. ANESTHESIA: Spinal by Jazmyne Quintanilla CRNA. TOURNIQUET TIME: Approximately 75 minutes at 300 mmHg. ESTIMATED BLOOD LOSS: Minimal. DRAINS: None. COMPLICATIONS: None. POSTOPERATIVE PLAN: Routine protocol. The patient was transferred to the recovery room awake and stable condition. MATERIALS: MicroPort cemented size 8 femur, cemented size 8+ tibia with a 10 mm insert and cemented size 38 patellar button. STATEMENT OF MEDICAL NECESSITY: The patient is a 67-year-old gentleman with longstanding progressive right knee pain. Radiographs revealed severe tricompartmental osteoarthritis. He has undergone treatment in the past with injections, anti-inflammatories and rest. Due to functional impairment and failure to improve with conservative measures, the patient elected to proceed with surgical intervention. DESCRIPTION OF PROCEDURE: After risks and benefits of the procedure were discussed and questions were answered and informed consent was signed and placed on the chart, the operative site was confirmed in the preoperative holding area initialed by surgeon. The patient was then transported to the operating room and after adequate levels of regional anesthetic were obtained, a timeout was called, confirming the operative site. The right lower extremity was prepped and draped in the usual sterile fashion with the leg elevated and the knee flexed and tourniquet inflated to 300 mmHg. A standard anterior approach was utilized. Hemostasis was obtained with cautery. Medial parapatellar arthrotomy was performed, leaving 1 cm cuff on the patella for later reattachment. A portion of the fat pad was resected. The ACL was resected. Subperiosteal release was performed on the proximal medial tibia, being careful to stay on the bony surface. The custom made block was placed distally with excellent coverage. This was then pinned into position, the cut was made and then the 8 cutting block was placed in the previously placed drill holes. This was felt to be well positioned then cuts were made from posterior to anterior. Subperiosteal release was then carefully performed on the posterior distal femur, being careful to stay on the bony surface. The custom tibial cutting block was then placed. The drop tiara transected the intermalleolar axis. This was pinned into position, the cut was made. The tibial baseplate was placed and felt to be in excellent position. This was then prepared with the drill and keel punch. The femoral trial was placed and the trochlear cut was made. The patella was prepared by resecting 10 mm off the undersurface and the peg guide was placed. Peg holes were drilled. A 38 mm trial was placed. A 10 mm insert was placed. The knee was taken through range of motion. Full extension was easily obtained under 20 degrees of flexion with gravity was easily obtained. The patella tracked well. There is no anterior/posterior or medial/lateral laxity in flexion or extension. The trials were removed. The joint was further irrigated with pulse lavage. Periarticular block was placed in the posterior capsule, medial and lateral retinaculum extensor mechanism and subcutaneous tissues. The bone ends were irrigated and dried. The tibial baseplate was cemented into position. Excessive cement was removed. Superior surface was irrigated and dried and the polyethylene insert was placed. Distal femur was irrigated and dried. The femoral prosthesis was placed. Excessive cement was removed. The knee was brought out into full extension until cement cured. The undersurface of the patella was irrigated and dried. The patellar button was cemented into position. Excessive cement was removed. Once the cement had cured, the knee was taken through range of motion. Full extension was easily obtained under 20 degrees of flexion with gravity was easily obtained. There was no anterior/posterior or medial/lateral laxity in flexion or extension. The patella tracked well. The 450 mL of IrriSept was used throughout the procedure. The joint was further irrigated. The arthrotomy was closed with #2 Tevdek in mtkwin-qw-vsbkq interrupted fashion. The knee was flexed. Repair was stable. Subcutaneous tissues were irrigated with pulse lavage using a total of 6 liters throughout the procedure. 0 Vicryl was used for the deep subcutaneous layer, 2-0 Vicryl, superficial subcutaneous layer, rico used on the skin. A soft dressing was applied. The tourniquet was deflated after placing the dressing and the patient was transferred to recovery room awake and stable condition.. Job ID: [id number] DocumentID: [id number] Dictated Date: 01/12/2023 11:16:41 Television Inspector Date: 01/12/2023 18:54:00 Dictated By: IGLESIA LAZARO MD
[2023-01-12] MEDS: SENNA W/DOCUSATE TABLET PO SCH (20:34)
[2023-01-12] MEDS ORDERED: ALPRAZolam 0.5 MG TABLET PO SCH (21:00)
[2023-01-12] MEDS ORDERED: ROSUVASTATIN 10 MG TABLET PO SCH (21:00)
[2023-01-12] MEDS ORDERED: GABAPENTIN 300 MG CAPSULE PO SCH ×2 (21:00)
[2023-01-13] VITALS (7 sets, daily range): BP systolic 127–157; BP diastolic 78–86
[2023-01-13] MEDS: CEFUROXIME INJECTION 750 MG in NS (IVPB) 50 ML 50 ML IV SCH (00:06)
[2023-01-13] MEDS: ACETAMINOPHEN 500 MG TABLET PO SCH ×2 (00:06→08:34)
[2023-01-13 05:58] LABS: BASOPHILS % (AUTO) 0 % (0-10); EOSINOPHILS # (AUTO) 0.1 10^3/uL (0.0-0.3); EOSINOPHILS % (AUTO) 1 % (0-10); HEMATOCRIT 34 % (40-54); HEMOGLOBIN 11.5 g/dL (13.3-17.7); LYMPHOCYTES # (AUTO) 0.8 10^3/uL (1.0-4.0); LYMPHOCYTES % (AUTO) 8 % (12-44); MEAN CORPUSCULAR HEMOGLOBIN 32 pg (25-34); MEAN CORPUSCULAR HGB CONC 34 g/dL (32-36); MEAN CORPUSCULAR VOLUME 93 fL (80-99); MEAN PLATELET VOLUME 10.7 fL (9.0-12.2); MONOCYTES # (AUTO) 0.9 10^3/uL (0.0-1.0); MONOCYTES % (AUTO) 10 % (0-12); NEUTROPHILS # (AUTO) 7.8 10^3/uL (1.8-7.8); NEUTROPHILS % (AUTO) 81 % (42-75); PLATELET COUNT 142 10^3/uL (130-400); WHITE BLOOD COUNT 9.6 10^3/uL (4.3-11.0)
[2023-01-13 06:05] LABS: ALBUMIN 3.5 GM/DL (3.2-4.5)
[2023-01-13 06:06] LABS: POTASSIUM 4.5 MMOL/L (3.6-5.0)
[2023-01-13 06:07] LABS: CALCIUM 8.4 MG/DL (8.5-10.1)
[2023-01-13 06:08] LABS: TOTAL PROTEIN 5.8 GM/DL (6.4-8.2)
[2023-01-13 06:10] LABS: BILIRUBIN,TOTAL 1.5 MG/DL (0.1-1.0)
[2023-01-13 06:12] LABS: CREATININE SERUM 0.91 MG/DL (0.60-1.30)
[2023-01-13 06:20] LABS: BAND NEUTROPHILS 2 %; LYMPHOCYTES % (MANUAL) 10 %; MONOCYTES % (MANUAL) 6 %; NEUTROPHILS % (MANUAL) 82 %
[2023-01-13] MEDS ORDERED: ENOXAPARIN 30 MG/0.3 ML SYRINGE SC SCH (08:00)
--- NOTE | 2023-01-13 08:01 | Progress Note ---
Standard Progress Note Progress Notes/Assess & Plan Date Seen by a Provider: Jan 13, 2023 Time Seen by a Provider: 07:46 Progress/Assessment & Plan post op check spinal in effect radiographs--HW well positioned without fracture RLE--1 plus DP pulse with brisk cap refill s/p RTKA mobilize when able Final Diagnosis no complaints Laboratory Tests Test 01/13/23 05:30 Range/Units White Blood Count 9.6 4.3-11.0 10^3/uL Red Blood Count 3.65 L 4.30-5.52 10^6/uL Hemoglobin 11.5 L 13.3-17.7 g/dL Hematocrit 34 L 40-54 % Mean Corpuscular Volume 93 80-99 fL Mean Corpuscular Hemoglobin 32 25-34 pg Mean Corpuscular Hemoglobin Concent 34 32-36 g/dL Red Cell Distribution Width 12.7 10.0-14.5 % Platelet Count 142 130-400 10^3/uL Mean Platelet Volume 10.7 9.0-12.2 fL Immature Granulocyte % (Auto) 0 % Neutrophils (%) (Auto) 81 H 42-75 % Lymphocytes (%) (Auto) 8 L 12-44 % Monocytes (%) (Auto) 10 0-12 % Eosinophils (%) (Auto) 1 0-10 % Basophils (%) (Auto) 0 0-10 % Neutrophils # (Auto) 7.8 1.8-7.8 10^3/uL Lymphocytes # (Auto) 0.8 L 1.0-4.0 10^3/uL Monocytes # (Auto) 0.9 0.0-1.0 10^3/uL Eosinophils # (Auto) 0.1 0.0-0.3 10^3/uL Basophils # (Auto) 0.0 0.0-0.1 10^3/uL Immature Granulocyte # (Auto) 0.0 0.0-0.1 10^3/uL Neutrophils % (Manual) 82 % Lymphocytes % (Manual) 10 % Monocytes % (Manual) 6 % Band Neutrophils 2 % Sodium Level 135 135-145 MMOL/L Potassium Level 4.5 3.6-5.0 MMOL/L Chloride Level 103 98-107 MMOL/L Carbon Dioxide Level 26 21-32 MMOL/L Anion Gap 6 5-14 MMOL/L Blood Urea Nitrogen 22 H 7-18 MG/DL Creatinine 0.91 0.60-1.30 MG/DL Estimat Glomerular Filtration Rate 94 BUN/Creatinine Ratio 24 Glucose Level 116 H 70-105 MG/DL Calcium Level 8.4 L 8.5-10.1 MG/DL Corrected Calcium 8.8 8.5-10.1 MG/DL Total Bilirubin 1.5 H 0.1-1.0 MG/DL Aspartate Amino Transf (AST/SGOT) 158 H 5-34 U/L Alanine Aminotransferase (ALT/SGPT) 156 H 0-55 U/L Alkaline Phosphatase 58 40-136 U/L Total Protein 5.8 L 6.4-8.2 GM/DL Albumin 3.5 3.2-4.5 GM/DL Vital Signs Date Time Temp Pulse Resp B/P (MAP) Pulse Ox O2 Delivery O2 Flow Rate FiO2 01/13/23 07:29 35.9 82 16 139/86 (103) 97 Room Air 01/13/23 06:34 71 157/78 (104) 01/13/23 03:08 36.4 65 18 150/84 (106) 97 Room Air 01/13/23 00:07 36.8 73 18 127/81 (96) 95 Room Air 01/12/23 20:40 Room Air 01/12/23 19:17 36.3 65 18 148/82 (104) 96 Room Air 01/12/23 15:22 36.0 72 16 143/71 (95) 98 Room Air 01/12/23 12:45 35.2 56 16 120/73 (89) 97 Room Air 01/12/23 12:15 Room Air 01/12/23 12:10 36.5 16 116/71 (86) 98 Room Air 01/12/23 12:00 Room Air 01/12/23 12:00 18 109/72 (84) 97 Room Air 01/12/23 11:50 16 111/68 (82) 94 Room Air 01/12/23 11:45 Room Air 01/12/23 11:40 16 94/65 (75) 96 Room Air 01/12/23 11:30 16 95/54 (68) 95 Room Air 01/12/23 11:30 Room Air 01/12/23 11:20 18 93/58 (70) 96 Room Air 01/12/23 11:14 36.4 20 91/61 (71) 97 Room Air 01/12/23 11:14 Room Air I & O 01/13/23 07:00 Intake Total 3520 ml Output Total 0 ml Balance 3520 ml RLE--intact DF and PF of toes and ankle intact sensation to light touch throughout madai to perform SLR flexion to 90 s/p RTKA doing well DC home later today DAT LAZARO MD Jan 13, 2023 08:01
--- NOTE | 2023-01-13 08:29 | Physical Therapy Daily Note ---
PT Daily Note-Current Subjective Patient agrees to PT. Pain Section J - Health Conditions 1. Rarely or not at all 2. Occasionally 3. Frequently 4. Almost constantly 8. Unable to answer Pain Effect on Sleep: 1 Pain Interference with Therapy: 1 Pain Interference w/Day-to-Day: 1 Mental Status Patient Orientation: Normal For Age Transfers SCALE: Activities may be completed with or without assistive devices. 0-Wedclsaarp-uaakjwz completes the activity by him/herself with no assistance from a helper. 5-Set-up or Clean-up Assistance-helper sets up or cleans up; patient completes activity. [place] assists only prior to or following the activity. 4-Supervision or Touching Assistance-helper provides verbal cues and/or touching/steadying and/or contact guard assistance as patient completes activity. Assistance may be provided throughout the activity or intermittently. 3-Partial/Moderate Assistance-helper does LESS THAN HALF the effort. [place] lifts, holds or supports trunk or limbs, but provides less than half the effort. 2-Substantial/Maximal Assistance-helper does MORE THAN HALF the effort. [place] lifts or holds trunk or limbs and provides more than half the effort. 3-Lrmawwoaw-jxrmxc does ALL the effort. Patient does none of the effort to complete the activity. Or, the assistance of 2 or more helpers is required for the patient to complete the activity. If activity was not attempted, code reason: 7-Patient Refused. 9-Not Applicable-not attempted and the patient did not perform the activity before the current illness, exacerbation or injury. 10-Not Attempted due to Environmental Limitations-(lack of equipment, weather restraints, etc.). 88-Not Attempted due to Medical Conditions or Safety Concerns. Lying to Sitting/Side of Bed(Q: 6 Sit to Stand (QC): 6 Weight Bearing Right Lower Extremity: Right Weight Bearing/Tolerated Left Lower Extremity: Left Full Weight Bearing Gait Training Distance: 200' x 2 Walk 10 feet (QC): 6 Walk 50 ft with 2 Turns(QC): 6 Walk 150 ft (QC): 6 Gait Assistive Device: FWW steady, step to gait sequence/slightly antalgic Stair Training Stair Training: Handrails/: 1 handrail, uses walker #of Steps: 4 1 Step (curb) (QC): 4 4 Steps (QC): 4 Stairs: Pattern: Step to Exercises Supine Ex: Ankle pumps, Quad Set, Heel Slides, Straight leg raise Supine Reps: 15 Seated Therapy Exercises: Long arc quads Seated Reps: 15 Assessment Patient progressing with treatment plan with functional AROM right knee flexion/extension. Patient is compliant with HEP and has performed independentl y. Patient to dismiss to home on this date. PT Blue Leather Sorter Goals Prison Goals PT Blue Leather Sorter Goals Time Frame: Jan 25, 2023 Roll Left & Right (QC): 6 Sit to Lying (QC): 6 Lying-Sitting on Side/Bed(QC): 6 Sit to Stand (QC): 6 Chair/Tms-la-Ibfol Xfer(QC): 6 Toilet Transfer (QC): 6 Does the Patient Walk: Yes Walk 10 feet (QC): 6 Walk 50ft with 2 Turns (QC): 6 Walk 150 ft (QC): 4 1 Step (curb) (QC): 4 4 Steps (QC): 4 12 Steps (QC): 4 PT Plan Treatment/Plan Treatment Plan: Continue Plan of Care Treatment Plan: Bed Mobility, Education, Functional Activity [place], Functional Strength, Group Therapy, Gait, Safety, Therapeutic Exercise, Transfers Treatment Duration: Jan 25, 2023 Frequency: 11 times per week Estimated Hrs Per Day: .25 hour per day Patient and/or Family Agrees t: Yes Time Time In: 710 Time Out: 739 DATE: Jan 13, 2023 Total Billed Treatment Time: 29 Total Billed Treatment 1 visit EX 13 min GT 16 min HERBIE OWENS PT Jan 13, 2023 08:29
[2023-01-13] MEDS: SENNA W/DOCUSATE TABLET PO SCH (08:34)
[2023-01-13] MEDS ORDERED: ASPIRIN enteric coated 81MG TABLET PO SCH (09:00)
[2023-01-13] MEDS ORDERED: LOSARTAN 100 MG TABLET PO SCH (09:00)
[2023-01-13] MEDS ORDERED: CELECOXIB 400 MG CAPSULE PO SCH ×2 (09:00)
[2023-01-13] MEDS ORDERED: HCTZ PO SCH (09:00)
[2023-01-13] MEDS ORDERED: LOSARTAN PO SCH (09:00)
[2023-01-13] MEDS ORDERED: LACTULOSE SYRUP 10GM/15ML 30ML UDC PO ONE (11:15)
--- NOTE | 2023-01-13 11:48 | Progress Note ---
JAYLEEN PATRICK 01/13/23 1148: Subjective Date Seen by a Provider: Jan 13, 2023 Time Seen by a Provider: 11:47 Subjective/Events-last exam This is a 67 year old male patient who presents after a right total knee replacement. Patient reports doing very well. He is ambulating well and weight bearing. He does say he is constipated but is taking medication for it. Patient reports that he has not had any problems, and that this has been his best surgery he's ever had. He's excited to leave today. Objective Exam Last Set of Vital Signs Vital Signs Date Time Temp Pulse Resp B/P (MAP) Pulse Ox O2 Delivery O2 Flow Rate FiO2 01/13/23 08:00 97 Room Air 01/13/23 07:29 35.9 82 16 139/86 (103) Capillary Refill : I&O Intake and Output 01/13/23 00:00 Intake Total 3070 ml Output Total 0 ml Balance 3070 ml Intake Oral 870 ml IV Total 2200 ml Output Urine Total 0 ml # Voids 2 General: Alert, Oriented X3, Cooperative HEENT: Atraumatic Neck: Supple Lungs: Clear to Auscultation Heart: Regular Rate Extremities: No Clubbing, No Cyanosis Skin: No Rashes, No Breakdown Neuro: Normal Gait, Normal Speech Results Lab Laboratory Tests 01/13/23 05:30: White Blood Count 9.6, Red Blood Count 3.65L, Hemoglobin 11.5L, Hematocrit 34L, Mean Corpuscular Volume 93, Mean Corpuscular Hemoglobin 32, Mean Corpuscular Hemoglobin Concent 34, Red Cell Distribution Width 12.7, Platelet Count 142, Mean Platelet Volume 10.7, Immature Granulocyte % (Auto) 0, Neutrophils (%) (Auto) 81H, Lymphocytes (%) (Auto) 8L, Monocytes (%) (Auto) 10, Eosinophils (%) (Auto) 1, Basophils (%) (Auto) 0, Neutrophils # (Auto) 7.8, Lymphocytes # (Auto) 0.8L, Monocytes # (Auto) 0.9, Eosinophils # (Auto) 0.1, Basophils # (Auto) 0.0, Immature Granulocyte # (Auto) 0.0, Neutrophils % (Manual) 82, Lymphocytes % (Manual) 10, Monocytes % (Manual) 6, Band Neutrophils 2, Sodium Level 135, Potassium Level 4.5, Chloride Level 103, Carbon Dioxide Level 26, Anion Gap 6, Blood Urea Nitrogen 22H, Creatinine 0.91, Estimat Glomerular Filtration Rate 94, BUN/Creatinine Ratio 24, Glucose Level 116H, Calcium Level 8.4L, Corrected Calcium 8.8, Total Bilirubin 1.5H, Aspartate Amino Transf (AST/SGOT) 158H, Alanine Aminotransferase (ALT/SGPT) 156H, Alkaline Phosphatase 58, Total Protein 5.8L, Albumin 3.5 Assessment/Plan Assessment/Plan Assess & Plan/Chief Complaint Assessment: Post right knee replacement Hypertension Anxiety GERD Plan: Continue home medication Pain control Encourage ambulation Discharge patient today TAMY MORENO DO 01/14/23 0443: Subjective Subjective/Events-last exam Patient doing really well Labs stable Ready for discharge Objective Exam General: Alert, Oriented X3, Cooperative, No Acute Distress Assessment/Plan Assessment/Plan Assess & Plan/Chief Complaint Discharge home Supervisory-Addendum Brief Verification & Attestation Participated in pt care: history, MDM, physical Personally performed: exam, history, MDM, supervision of care Care discussed with: Medical Student Procedures: n/a Results interpretation: Verified all documentation Verification and Attestation of Medical Student E/M Service A medical student performed and documented this service in my presence. I reviewed and verified all information documented by the medical student and made modifications to such information, when appropriate. I personally performed the physical exam and medical decision making. Tamy Moreno, Jan 14, 2023,04:43 JAYLEEN PATRICK Jan 13, 2023 11:48 TAMY MORENO DO Jan 14, 2023 04:43
--- NOTE | 2023-01-13 12:13 | Anesthesia-Regional Post-Op ---
Regional Patient Condition Mental Status: Alert, Oriented x3 Circulation: Same as Pre-Op Headache: Absent Sensation: Full Recovery Motor Block: Absent Post Op Complications Complications None Follow Up Care/Instructions Patient Instructions None needed. Anesthesia/Patient Condition Patient is already discharged to home but he was doing well prior to his discharge this morning. He had no complaints of pain, stable vital signs, no apparent adverse anesthesia problems. No complications reported per nursing. VIVIAN CASTREJON DO Jan 13, 2023 12:13
[2023-01-13 20:40] LABS: HEPATITIS C ANTIBODY C Non-Reactive (Non-Reactive)
[2023-01-14] MEDS ORDERED: ONDA4TAB11 SL (03:21)
[2023-01-14] MEDS ORDERED: PANT40TA2 PO (03:21)
== END 2023-01-13 09:50 | disposition home health service (06) ==
LOC: UNDOADMIN 07:45 → SDC 07:45 → 4TH 07:45 → SDC 07:46 → SURG 07:46 → EDSTATUS 10:30 → 4TH 12:23 → SURG 12:23 → UNDODISIN 01-13 09:50 → SDC 01-13 09:50
PROVIDERS: ATTEND Orthopaedic Surgery
DX: M17.11 Unilateral primary osteoarthritis, right knee (principal); E66.9 Obesity, unspecified; Z68.29 Body mass index [BMI] 29.0-29.9, adult; I10 Essential (primary) hypertension; F31.9 Bipolar disorder, unspecified; K21.9 Gastro-esophageal reflux disease without esophagitis; Z79.899 Other long term (current) drug therapy
CPT/HCPCS: 27447; 71046; 73560; 80053; 80074; 85007; 85027; 86850; 86900; 86901; 93005; 97110; 97116; 97162; 97530; C1713 ×2; C1776 ×4; 36415; 85025; 85610; 87081

== ENCOUNTER 2023-01-13 21:21 | Emergency (ER) | payer MEDICARE, OTHER ==
[~2023-01-13 21:21] MED LIST changes: +ACET-168 PO; +CELE400C PO; +CELE400C16 PO; +ESOM20CA37 PO; +GABA300C PO; -NS IV 1000 ML 1,000 ML IV SCH; -ONDANSETRON INJECTION 4 MG/2 ML (SDV) IV PRN; +OXYC1TAB11 PO; -TEMAZEPAM 15 MG (RESTORIL) CAP PO PRN; +TRAM50TA3 PO; -diphenhydrAMINE INJ 50 MG/ML VIAL IVP PRN; -oxyCODONE/ACETAMINOPHEN 5/325MG TABLET PO PRN
[2023-01-14] MEDS ORDERED: PANT40TA2 PO (03:21)
[2023-01-14] MEDS ORDERED: ONDA4TAB11 SL (03:21)
== END 2023-01-13 21:48 | disposition left against medical advice (07) ==
LOC: EDUNIT# 21:21 → ER FS 21:23
DX: K59.00 Constipation, unspecified (principal)

== ENCOUNTER 2023-01-13 22:15 | Emergency (ER) | payer MEDICARE, OTHER ==
[~2023-01-13] VITALS: Ht 201 cm; Wt 124.7 kg
[2023-01-13] MEDS ORDERED: PANTOPRAZOLE INJECTION 40 MG VIAL IV ONE (22:45)
[2023-01-13] MEDS ORDERED: LACTATED RINGERS 1,000 ML 1,000 ML IV ONE (22:45)
[2023-01-13] MEDS ORDERED: ONDANSETRON INJECTION 4 MG/2 ML (SDV) IVP ONE (22:45)
--- NOTE | 2023-01-13 22:52 | ED Abdominal Pain ---
General Chief Complaint: Abdominal/GI Problems Stated Complaint: CONSTIPATION, POST DISCHARGE PAIN Nursing Triage Note: PT AMB TO [facility] WITH WALKER WITH CC OF CONSTIPATION THAT STARTED 01/11. PT STATES THAT HE WAS RELEASED FROM THE HOSPITAL TODAY FOR A KNEE REPLACEMENT. Source of Information: Patient, Old Records Exam Limitations: No Limitations History of Present Illness Date Seen by Provider: Jan 13, 2023 Time Seen by Provider: 22:35 Allergies and Home Medications Allergies Coded Allergies: meperidine (Verified Allergy, Unknown, Vomiting, 01/05/23) Patient Home Medication List Acetaminophen (Acetaminophen Extra Strength) 500 Mg Tablet, 1,000 MG PO Q8H, (Reported) Entered as Reported by: APTEL REAL on 01/12/23 0930 Alprazolam (Alprazolam) 0.5 Mg Tablet, 0.5 MG PO HS, (Reported) Entered as Reported by: Barbra Muro on 01/05/23 1223 Celecoxib (Celecoxib) 400 Mg Capsule, 400 MG PO DAILY, (Reported) Entered as Reported by: CRUZ ESTEBAN on 01/12/23 1446 Esomeprazole Magnesium (Esomeprazole Magnesium) 20 Mg Capsule.dr, 20 MG PO HS PRN for HEARTBURN, (Reported) Entered as Reported by: PATEL REAL on 01/12/23 1022 Gabapentin (Neurontin) 300 Mg Capsule, 300 MG PO HS, (Reported) Entered as Reported by: CRUZ ESTEBAN on 01/12/23 1446 Losartan/Hydrochlorothiazide (Losartan-Hctz 100-12.5 mg Tab) 100 Mg-12.5 Mg Tablet, 1 EACH PO DAILY, (Reported) Entered as Reported by: Barbra Muro on 01/05/23 1223 Oxycodone HCl/Acetaminophen (Oxycodone-Acetaminophen 5-325) 5 Mg-325 Mg Tablet, 1 EA PO Q4H PRN for PAIN-MODERATE (5-7), (Reported) Entered as Reported by: CRUZ ESTEBAN on 01/12/23 1446 Rosuvastatin Calcium (Rosuvastatin Calcium) 10 Mg Tablet, 10 MG PO HS, (Reported) Entered as Reported by: Barbra Muro on 01/05/23 1223 Tramadol HCl (Tramadol HCl) 50 Mg Tablet, 100 MG PO Q6H PRN for PAIN-MODERATE (5-7), (Reported) Entered as Reported by: CRUZ ESTEBAN on 01/12/23 1446 Discontinued Medications Celecoxib (Celebrex) 400 Mg Capsule, 400 MG PO DAILY, (Reported) Discontinued Reason: Duplicate Order Entered as Reported by: PATEL REAL on 01/12/23 0930 Gabapentin (Neurontin) 300 Mg Capsule, 300 MG PO HS, (Reported) Discontinued Reason: Duplicate Order Entered as Reported by: PATEL REAL on 01/12/23 0930 Past Gclidjc-Dlbbko-Iugxnx Hx Patient Social History Tobacco Use?: No Substance use?: No Alcohol Use?: Yes Alcohol Frequency: Daily Seasonal Allergies Seasonal Allergies: Yes Past Medical History Surgery/Hospitalization HX: HTN, KNEE REPLACEMENT, BACK SURGERY, SHOULDER SURGERY, GALLBLADDER, 2 ANKLE SURGERY, CATARACT SURGERY Surgeries: Yes (RIGHT SHOULDER ROTATOR CUFF, LEFT ANKLE X2) Gallbladder, Orthopedic Respiratory: No Currently Using CPAP: No Currently Using BIPAP: No Cardiac: Yes Hypertension Neurological: No Genitourinary: No Gastrointestinal: Yes Gastroesophageal Reflux Musculoskeletal: Yes Arthritis Endocrine: No HEENT: Yes Cataract Hearing Impairment: Hard of Hearing, Bilateral Hearing Aide Cancer: No Psychosocial: Yes Anxiety Integumentary: No Blood Disorders: No Physical Exam Vital Signs Vital Signs - First Documented 01/13/23 22:29 Temp 37.5 Pulse 98 B/P (MAP) 160/83 (108) Pulse Ox 97 O2 Delivery Room Air Capillary Refill : Height/Weight/BMI Height: '" Weight: lbs. oz. kg; 30.00 BMI Method: Progress/Results/Core Measures Results/Orders Lab Results Laboratory Tests Test 01/13/23 22:54 Range/Units White Blood Count 10.3 4.3-11.0 10^3/uL Red Blood Count 3.69 L 4.30-5.52 10^6/uL Hemoglobin 11.7 L 13.3-17.7 g/dL Hematocrit 34 L 40-54 % Mean Corpuscular Volume 92 80-99 fL Mean Corpuscular Hemoglobin 32 25-34 pg Mean Corpuscular Hemoglobin Concent 34 32-36 g/dL Red Cell Distribution Width 12.7 10.0-14.5 % Platelet Count 173 130-400 10^3/uL Mean Platelet Volume 10.9 9.0-12.2 fL Immature Granulocyte % (Auto) 0 % Neutrophils (%) (Auto) 86 H 42-75 % Lymphocytes (%) (Auto) 6 L 12-44 % Monocytes (%) (Auto) 7 0-12 % Eosinophils (%) (Auto) 0 0-10 % Basophils (%) (Auto) 0 0-10 % Neutrophils # (Auto) 8.9 H 1.8-7.8 10^3/uL Lymphocytes # (Auto) 0.6 L 1.0-4.0 10^3/uL Monocytes # (Auto) 0.7 0.0-1.0 10^3/uL Eosinophils # (Auto) 0.0 0.0-0.3 10^3/uL Basophils # (Auto) 0.0 0.0-0.1 10^3/uL Immature Granulocyte # (Auto) 0.0 0.0-0.1 10^3/uL Neutrophils % (Manual) 80 % Lymphocytes % (Manual) 4 % Monocytes % (Manual) 5 % Eosinophils % (Manual) 1 % Band Neutrophils 9 % Reactive Lymphocytes 1 % Sodium Level 132 L 135-145 MMOL/L Potassium Level 3.8 3.6-5.0 MMOL/L Chloride Level 97 L 98-107 MMOL/L Carbon Dioxide Level 25 21-32 MMOL/L Anion Gap 10 5-14 MMOL/L Blood Urea Nitrogen 18 7-18 MG/DL Creatinine 0.87 0.60-1.30 MG/DL Estimat Glomerular Filtration Rate 96 BUN/Creatinine Ratio 21 Glucose Level 140 H 70-105 MG/DL Calcium Level 9.2 8.5-10.1 MG/DL Corrected Calcium 9.1 8.5-10.1 MG/DL Magnesium Level 2.0 1.6-2.4 MG/DL Total Bilirubin 1.9 H 0.1-1.0 MG/DL Aspartate Amino Transf (AST/SGOT) 97 H 5-34 U/L Alanine Aminotransferase (ALT/SGPT) 136 H 0-55 U/L Alkaline Phosphatase 74 40-136 U/L Total Protein 6.7 6.4-8.2 GM/DL Albumin 4.1 3.2-4.5 GM/DL Lipase 5 L 8-78 U/L My Orders Leigh - ANDRES STEPHENSON MD Cbc And Automated Diff (01/13/23 22:45) Comprehensive Metabolic Panel (01/13/23 22:45) Lipase (01/13/23 22:45) Magnesium (01/13/23 22:45) Ed Iv/Invasive Line Start (01/13/23 22:45) Lactated Ringers 1,000 Ml (Lactated Ring (01/13/23 22:45) Ondansetron Injection (Ondansetron Inj (01/13/23 22:45) Pantoprazole Injection (Pantoprazole Inj (01/13/23 22:45) Abdomen, Flat & Upright/Decub (01/13/23 22:48) Manual Differential (01/13/23 22:54) Ct Abdomen/Pelvis W (01/13/23 23:41) Iohexol Injection (Omnipaque 350 Mg/Ml 1 (01/14/23 00:00) Received Contrast (Hold Metformin- Contr (01/14/23 00:00) Sodium Chloride Flush (Catheter Flush Sy (01/14/23 00:00) Ns (Ivpb) 100 Ml (Sodium Chloride 0.9% 1 (01/14/23 00:00) Metoclopramide Injection (Metoclopramide (01/14/23 02:22) Lidocaine 2% Viscous 15 Ml (Xylocaine Vi (01/14/23 02:30) Antacid Suspension (Antacid Suspension (01/14/23 02:30) Medications Given in ED Current Medications Medications Dose Ordered Sig/Tabby Route Start Time Stop Time Status Last Admin Dose Admin Al Hydrox/Mg Hydrox/Simethicone 30 ml ONCE ONCE PO 01/14/23 02:30 01/14/23 02:31 DC 01/14/23 02:44 30 ML Iohexol 100 ml ONCE ONCE IV 01/14/23 00:00 01/14/23 00:01 DC 01/13/23 23:58 100 ML Lactated Ringer's 1,000 ml @ 0 mls/hr Q0M ONCE IV 01/13/23 22:45 01/13/23 22:49 DC 01/13/23 22:56 0 MLS/HR Lidocaine HCl 15 ml ONCE ONCE PO 01/14/23 02:30 01/14/23 02:31 DC 01/14/23 02:44 15 ML Ondansetron HCl 4 mg ONCE ONCE IVP 01/13/23 22:45 01/13/23 22:49 DC 01/13/23 22:55 4 MG Pantoprazole 40 mg ONCE ONCE IV 01/13/23 22:45 01/13/23 22:49 DC 01/13/23 22:55 40 MG Sodium Chloride 10 ml NEEDED PRN IV 01/14/23 00:00 01/13/23 23:58 10 ML Sodium Chloride 100 ml ONCE ONCE IV 01/14/23 00:00 01/14/23 00:01 DC 01/13/23 23:58 80 ML Vital Signs/I&O 01/13/23 22:29 Temp 37.5 Pulse 98 B/P (MAP) 160/83 (108) Pulse Ox 97 O2 Delivery Room Air Blood Pressure Mean: 108 Departure Impression Primary Impression: Postoperative ileus Additional Impressions: GERD (gastroesophageal reflux disease) Qualified Codes: K21.9 - Gastro-esophageal reflux disease without esophagitis Upper abdominal pain Disposition: HOME, SELF-CARE Condition: Improved Departure-Patient Inst. Decision time for Depature: 02:48 Referrals: SELF,ANGELO HUMPHREYS (PCP/Family) Primary Care Physician Patient Instructions: Acid Reflux and GERD in Adults (DC), Postoperative Ileus (DC) Add. Discharge Instructions: Drink plenty of noncarbonated clear liquids to stay well-hydrated and keep your bowels moving well. You may use Zofran (ondansetron) as prescribed for nausea and vomiting. Start Protonix and continue using until you are doctor instructs you otherwise. Please note the following may worsen acid reflux and gastritis: Eating large meals, eating close to bedtime, caffeine, carbonation, chocolate, citrus fruits and juices, tomato products, alcohol, tobacco, NSAID medications such as ibuprofen or naproxen, spicy foods, fatty/greasy foods, and anything else you know irritates your stomach. In particular, I suggest abstaining from alcohol until you are acid reflux and upper abdominal pain has resolved for a few weeks. If you resume alcohol consumption, do so in moderation with no more than a couple of drinks per sitting and no more than a couple of days per week. Keep your postoperative follow-up appointments and see your primary care provider soon as possible. While you are taking pain medications such as oxycodone, gabapentin, and tramadol, you may wish to use a stool softener such as Colace 100 mg once or twice daily or MiraLAX (polyethylene glycol once a day. If stools become runny or to soft, reduce frequency and/or dosing. Return to care if you have worsening symptoms despite following these instructions. All discharge instructions reviewed with patient and/or family. Voiced understanding. Scripts Pantoprazole Sodium (Protonix) 40 Mg Tablet.dr 40 MG PO DAILY, #30 TAB Prov: ANDRES STEPHENSON MD 01/14/23 Ondansetron (Ondansetron Odt) 4 Mg Tab.rapdis 4 MG SL Q4H PRN for NAUSEA/VOMITING, #10 TAB Prov: ANDRES STEPHENSON MD 01/14/23 ANDRES STEPHENSON MD Jan 13, 2023 22:52
[2023-01-13 23:04] LABS: BASOPHILS % (AUTO) 0 % (0-10); EOSINOPHILS % (AUTO) 0 % (0-10); HEMATOCRIT 34 % (40-54); HEMOGLOBIN 11.7 g/dL (13.3-17.7); LYMPHOCYTES # (AUTO) 0.6 10^3/uL (1.0-4.0); LYMPHOCYTES % (AUTO) 6 % (12-44); MEAN CORPUSCULAR HEMOGLOBIN 32 pg (25-34); MEAN CORPUSCULAR HGB CONC 34 g/dL (32-36); MEAN CORPUSCULAR VOLUME 92 fL (80-99); MEAN PLATELET VOLUME 10.9 fL (9.0-12.2); MONOCYTES # (AUTO) 0.7 10^3/uL (0.0-1.0); MONOCYTES % (AUTO) 7 % (0-12); NEUTROPHILS # (AUTO) 8.9 10^3/uL (1.8-7.8); NEUTROPHILS % (AUTO) 86 % (42-75); PLATELET COUNT 173 10^3/uL (130-400); WHITE BLOOD COUNT 10.3 10^3/uL (4.3-11.0)
[2023-01-13 23:14] LABS: ALBUMIN 4.1 GM/DL (3.2-4.5); POTASSIUM 3.8 MMOL/L (3.6-5.0)
[2023-01-13 23:15] LABS: CALCIUM 9.2 MG/DL (8.5-10.1)
[2023-01-13 23:17] LABS: TOTAL PROTEIN 6.7 GM/DL (6.4-8.2)
[2023-01-13 23:18] LABS: BILIRUBIN,TOTAL 1.9 MG/DL (0.1-1.0)
[2023-01-13 23:20] LABS: BAND NEUTROPHILS 9 %; CREATININE SERUM 0.87 MG/DL (0.60-1.30); EOSINOPHILS % (MANUAL) 1 %; LYMPHOCYTES % (MANUAL) 4 %; MONOCYTES % (MANUAL) 5 %; NEUTROPHILS % (MANUAL) 80 %; REACTIVE LYMPHOCYTES 1 %
[2023-01-14] MEDS ORDERED: NS 100 ML (IVPB) BAG IV ONE
[2023-01-14] MEDS ORDERED: HOLD METFORMIN - RECEIVED CONTRAST 20 ML VIAL IV SCH
[2023-01-14] MEDS ORDERED: IOHEXOL 350 MG/ML 100 ML (OMNIPAQUE 350) VIAL IV ONE
[2023-01-14] MEDS ORDERED: CATHETER FLUSH 10 ML SYR IV PRN
[2023-01-14] MEDS ORDERED: METOCLOPRAMIDE INJ 10 MG/2 ML IVP STA (02:22)
[2023-01-14] MEDS ORDERED: LIDOCAINE 2% VISCOUS 15 ML UDC PO ONE (02:30)
[2023-01-14] MEDS ORDERED: ANTACID SUSPENSION 30 ML UDC PO ONE (02:30)
[2023-01-14 03:21] VITALS: BP 160/83
[2023-01-14] MEDS ORDERED: ONDA4TAB11 SL (03:21)
[2023-01-14] MEDS ORDERED: PANT40TA2 PO (03:21)
--- NOTE | 2023-01-14 07:31 | Diagnostic Imaging Report ---
PROCEDURE: CT abdomen and pelvis with contrast. TECHNIQUE: Multiple contiguous axial images were obtained through the abdomen and pelvis after administration of intravenous contrast. Auto Exposure Controls were utilized during the CT exam to meet ALARA standards for radiation dose reduction. All CT scans use one or more of the following dose optimizing techniques: automated exposure control, MA and/or KvP adjustment based on patient size and exam type or iterative reconstruction. INDICATION: Bowel obstruction, constipation. FINDINGS: Gallbladder absent. Liver, spleen, adrenals and pancreas unremarkable. Kidneys unobstructed. No bowel obstruction. No differential air-fluid levels. No pneumatosis. No free gas or stool in the colon but the fecal load is not grossly pathologic. Urinary bladder and urinary tracts unobstructed and unremarkable. No pneumatosis. No free gas. No focal inflammatory changes. IMPRESSION: No acute appearing abnormality. Dictated by: Dictated on workstation # [id number]
--- NOTE | 2023-01-14 07:38 | Diagnostic Imaging Report ---
Indication: Constipation. Findings: There is a perhaps mild elevation of the fecal load on the left colon. On the right there are some nondilated air-fluid levels within the colon which may reflect some proximal liquid stool. No small bowel dilatation. No obstruction. Impression: Some distal colonic formed stool and there is likely some liquid stool in the proximal colon. No bowel obstruction, free air or pathological bowel distention. Dictated by: Dictated on workstation # [id number]
== END 2023-01-14 03:21 | disposition home or self-care (01) ==
LOC: EDUNIT# 22:15 → ER 22:20
DX: K91.89 Other postprocedural complications and disorders of digestive system (principal); K56.7 Ileus, unspecified; K21.9 Gastro-esophageal reflux disease without esophagitis
CPT/HCPCS: 36415; 74019; 74177; 80053; 83690; 83735; 85007; 85027; 96361; 96374; 96375